=== PATIENT | male | born 1995 | race Asian ===

== ENCOUNTER 2021-04-07 21:05 | Emergency (ER) | payer BC ==
[2021-04-07] MEDS ORDERED: Ketorolac Tromethamine 30 MG/ML VIAL ONE (22:20)
[2021-04-07] MEDS ORDERED: HYDROcodone/Acetaminophen 5/325 mg Tablet ONE ×2 (22:20→22:43)
== END 2021-04-07 23:27 | disposition home or self-care (01) ==
LOC: ERS 21:05
DX: S42.001A Fracture of unspecified part of right clavicle, initial encounter for closed fracture (principal); Z87.891 Personal history of nicotine dependence; W19.XXXA Unspecified fall, initial encounter
CPT/HCPCS: 96372; J1885

== ENCOUNTER → 2021-04-12 | Outpatient (CLI) | payer BC ==
[2021-04-12 17:11] LABS: SARS-CoV-2 PCR by NAA Not Detected (NotDetected)
== END ==
LOC: LABBT 09:20
PROVIDERS: ATTEND Orthopaedic Surgery
DX: Z01.812 Encounter for preprocedural laboratory examination (principal); S42.001A Fracture of unspecified part of right clavicle, initial encounter for closed fracture; Z20.822 Contact with and (suspected) exposure to COVID-19
CPT/HCPCS: U0003; U0005

== ENCOUNTER 2021-04-13 10:54 | Day surgery (SDC) | payer BC ==
[2021-04-12 10:57] VITALS: BMI 27.4
[2021-04-13] MEDS ORDERED: ceFAZolin 2 GM/DEX 5% 100 ML BAG ONE (11:37)
[2021-04-13] MEDS ORDERED: Fentanyl 100 MCG/2 ML VIAL ONE ×3 (13:19→15:39)
[2021-04-13] MEDS ORDERED: Ondansetron PF 4 MG/2 ML Vial ONE (13:21)
[2021-04-13] MEDS ORDERED: PHENYLEPHRINE-NS 100 MCG/ML 10 ML SYRINGE ONE (13:21)
[2021-04-13] MEDS ORDERED: Ketorolac Tromethamine 30 MG/ML VIAL ONE (13:21)
[2021-04-13] MEDS ORDERED: Lidocaine 1% PF 5 ML VIAL ONE (13:21)
[2021-04-13] MEDS ORDERED: PROPOFOL 200 MG/20 ML VIAL ONE (13:21)
[2021-04-13] MEDS ORDERED: ePHEDrine 50 MG/ML VIAL ONE (13:21)
[2021-04-13] MEDS ORDERED: Dexamethasone 20 MG/5 ML VIAL ONE (13:21)
[2021-04-13] MEDS ORDERED: HYDROmorphone 2 MG/ML VIAL ONE ×2 (13:38→15:16)
[2021-04-13] MEDS ORDERED: Meperidine HCl/PF 25 MG/ML VIAL ONE (14:52)
[2021-04-13] MEDS ORDERED: HYDROcodone/Acetaminophen 5/325 mg Tablet ONE (17:00)
== END 2021-04-13 17:40 | disposition home or self-care (01) ==
LOC: SDC 10:54
PROVIDERS: ATTEND Orthopaedic Surgery
PROC: 0PS904Z Reposition Right Clavicle with Internal Fixation Device, Open Approach (ICD-10-PCS; principal; 2021-04-13)
DX: S42.021A Displaced fracture of shaft of right clavicle, initial encounter for closed fracture (principal); X58.XXXA Exposure to other specified factors, initial encounter; Y93.55 Activity, bike riding
CPT/HCPCS: 76000; C1713; J1100; J1170; J1885; J2175; J2405; J2704; J3010; J3490